=== PATIENT | male | born 1990 | race Caucasian/White ===

== ENCOUNTER 2024-06-18 11:22 | Emergency (ER) | payer OTHER, SELFPAY ==
[2024-06-18 11:33] VITALS: BP 142/85; PULSE 83; RESP 18; TEMP 36.6; O2SAT 99
--- NOTE | 2024-06-18 12:26 | ED_ITS ---
HPI - URI/Sore Throat General Chief Complaint: Upper Respiratory Infection Stated Complaint: Chest Congestion/Ear Pain Time Seen by Provider: 06/18/24 12:20 Source: patient, RN notes reviewed and old records reviewed Mode of arrival: ambulatory Limitations: no limitations History of Present Illness HPI Narrative: 34 year old male presents to [facility] care with complaints of left ear pain and drainage with some productive cough with greenish phlegm and head congestion for the past 4 days. Patient reports that he has been taking DayQuil, Mucinex, and and using an old albuterol inhaler he had without resolution. Patient reports no dyspnea with respiration even and nonlabored SAO2 99% on room air. Patient reports that it is night to go be [facility] who is [facility] and won't be able to go due to illness. MD elicited complaint: other (chest congestion and ear pain) Onset (ago): day(s) (4) Severity: moderate Description of mucous: green Able to tolerate fluids by mouth: Yes Treatments prior to arrival: other (Mucinex, DayQuil and old Albuterol inhaler) Related Data Home Medications Medication Instructions Recorded Confirmed bupropion HCl (smoking deter) 150 150 mg PO DIRECTED 06/18/24 06/18/24 mg tablet,12 hr sustained-release(smoking deterrent) dextroamphetamine-amphetamine 30 30 mg PO DIRECTED 06/18/24 06/18/24 mg tablet Allergies Allergy/AdvReac Type Severity Reaction Status Date / Time No Known Allergies Allergy Verified 06/18/24 11:31 Review of Systems Review of Systems: CONSTITUTIONAL: Reports malaise,no chills, sweats, or fever. EYES: Denies visual changes, redness, or discharge. ENT: Reports rhinorrhea, congestion, sinus pain, left otalgia and no sore throat. CARDIOVASCULAR: Denies chest pain, palpitations, or edema. RESPIRATORY: Reports productive cough.? Denies dyspnea. GASTROINTESTINAL: Denies abdominal pain, nausea, vomiting, diarrhea SKIN: Denies rash or itching. MUSCULOSKELETAL: Denies myalgia. NEUROLOGIC: Denies headache. All systems reviewed & are unremarkable except as noted in HPI and below PMFSH Past Medical History Medical History (Updated 06/23/24 @ 08:52 by Radha Mahan NP) ADHD (attention deficit hyperactivity disorder) Social History Social History (Updated 06/23/24 @ 08:49 by Radha Mahan NP) Smoking status: Former smoker Alcohol intake: current Alcohol use details: rare social Substance use type: does not use Living arrangements: with family Gender identity (if verbalized by the patient): Male Comments At time of signature, agree with nursing past medical, surgical, social and family history. There is no relevant family history pertinent to the presenting complaint Exam Narrative: GENERAL: Well-appearing, well-nourished, and in no acute distress. HEAD: Normocephalic EYES: PERRLA, conjunctivae clear ENT: Nares red swollen, turbinates edematous and erythematous, yellow green discharge sinus pressure. Mucous membranes moist.Left TM red with perforation of ear drum, Right TM pearly zhang with dull light reflex; no tragal tenderness. Oropharynx erythematous without lesions. Tonsils not enlarged and without exudate, no drooling, no hoarseness, no trismus, uvula midline.post nasal drainage present NECK: Supple. No lymphadenopathy CHEST: Clear to auscultation, breath sounds equal. No wheezing, rhonchi, rales, or stridor. No respiratory distress, speaks in full sentences. positive for productive cough SAO2 99% on room air HEART: Regular rate and rhythm. No murmur heard. SKIN: Warm, dry, no rash. NEURO: Alert and oriented x3. PSYCH: Normal mood and affect Course Course Emergency Course: Patient is aware of diagnosis, understands and agrees to treatment plan.? Anticipatory guidance given.? Patient agrees to follow-up as directed and is aware of reasons to seek care at the emergency department. Portions of this record may have been created with voice recognition software Level of Care: Express Care Visit Vital Signs Vital signs: Vital Signs Temperature 36.6 C 06/18/24 11:33 Pulse Rate 83 06/18/24 11:33 Respiratory Rate 18 06/18/24 11:33 Blood Pressure 142/85 H 06/18/24 11:33 Pulse Oximetry 99 06/18/24 11:33 Oxygen Delivery Room Air 06/18/24 11:33 Temperature 36.6 C 06/18/24 11:33 Pulse Rate 83 06/18/24 11:33 Respiratory Rate 18 06/18/24 11:33 Blood Pressure 142/85 H 06/18/24 11:33 Pulse Oximetry 99 06/18/24 11:33 Oxygen Delivery Room Air 06/18/24 11:33 Reviewed MDM - URI/Sore Throat MDM Narrative Medical decision making narrative: Differential diagnosis considered: Drew virus, strep pharyngitis, allergic rhinitis, upper respiratory tract infection, sinusitis, rhinosinusitis, nasopharyngitis. viral pharyngitis, otitis media, otitis externa, pneumonia, bronchitis, viral cough syndrome, viral syndrome, and influenza.? Exam findings show no acute concerns or changes; patient is non-toxic appearing and is in no distress.? Patient is appropriate for outpatient treatment and follow-up. Differential Diagnosis Differential diagnosis: Likely upper respiratory infection, otitis media, sinusitis, viral infection, bronchitis and other (cough) Medical Records Attestation: I reviewed the patient's medical records. Lab Data Attestation: I reviewed the patient's lab results. Critical Care Time Critical Care Time Critical Care Time: No Discharge Plan Discharge Clinical Impression: Congestion of nasal sinus Otitis media Qualifiers: Otitis media type: suppurative Chronicity: acute Laterality: left Recurrence: non-recurrent Spontaneous tympanic membrane rupture: with spontaneous rupture Qualified Code(s): H66.012 - Acute suppurative otitis media with spontaneous rupture of ear drum, left ear Patient Disposition: Home, Self-Care Condition: Stable Instructions: Antibiotic Form, Ear Infection (GEN) Additional Instructions: Increase fluids especially juices and water [id number] cough and cold medicine of your choice for your symptoms Zyrtec Claritin or Kristin daily include Coricidin brand decongestant Tylenol or ibuprofen for fever pain heat to the face 20-30 minutes 4-6 times a day for pain Salt water gargles, throat lozenges or throat sprays as desired Antibiotic as directed--finished the medication Ear drops as prescribed If your symptoms persist, change or worsen significantly before you can contact your personal physician then please, without delay, go to the emergency department for further evaluation. Follow-up with PCP in 7-10 days or sooner if needed Follow up with PCP soon in regards to your blood pressure which is elevated above threshold for referral. Blood pressure above 120/80 may indicate pre- hypertension. 142/85 Prescriptions: New amoxicillin-pot clavulanate 875-125 mg tablet 1 tablet PO Q12H Qty: 20 0RF Rx Instructions: Take with food encouraged to take probiotic while on this medication ofloxacin 0.3 % drops 5 drp LEFT EAR Q12H Qty: 10 0RF No Action dextroamphetamine-amphetamine 30 mg tablet 30 mg PO DIRECTED bupropion HCl (smoking deter) 150 mg tablet extended release 12 hr 150 mg PO DIRECTED Follow-up/Referrals: Agustin,Garo Smith MD [Primary Care Provider] - Time of Disposition: 12:38 Quality [place] Coma Scale Eyes: Open Verbal: Oriented and Alert Motor: Follows Commands Tamra Coma Total Score: 15
== END 2024-06-18 12:45 | disposition home or self-care (01) ==
PROVIDERS: Emergency Provider Registered Nurse; PCP Internal Medicine
DX: H66.002 Acute suppurative otitis media without spontaneous rupture of ear drum, left ear (principal); J34.89 Other specified disorders of nose and nasal sinuses; F90.9 Attention-deficit hyperactivity disorder, unspecified type
CPT/HCPCS: 99203; G0463

== ENCOUNTER 2025-01-15 12:19 | Outpatient (CLI) | payer OTHER, SELFPAY ==
--- NOTE | ~2025-01-15 | XR_ITS ---
XR cervical spine min 6V Ordering provider: Mikhail Mccullough, [place] History: . Cervicalgia . Comparison: None. FINDINGS: VERTEBRAL BODIES: Minimal anterolisthesis at the level of C6-C7. Otherwise, Normal height and alignme nt. No visible fracture or subluxation. The dens is intact. DISK SPACES: Well maintained. Narrowing of the intervertebral foramina in the lower cervical area bilaterally. PARASPINOUS SOFT TISSUES: No prevertebral soft tissue swelling. IMPRESSION: No acute osseous abnormality cervical spine. Minimal anterolisthesis at the level of C6-C7. Minimal narrowing of the foramina in the lower cervica l area bilaterally. Reviewed, dictated and finalized at location A. IMPRESSION: No acute osseous abnormality cervical spine. Minimal anterolisthesis at the level of C6-C7. Minimal narrowing of the foramin a in the lower cervical area bilaterally.
== END 2025-01-15 12:20 | disposition home or self-care (01) ==
LOC: MICIMG 12:20
PROVIDERS: PCP Chiropractor Rehabilitation; Visit Provider Chiropractor Rehabilitation
DX: M54.2 Cervicalgia (principal)
CPT/HCPCS: 72052

== ENCOUNTER 2025-03-08 15:29 | Outpatient (CLI) | payer OTHER, SELFPAY ==
--- NOTE | ~2025-03-08 | CT_ITS ---
EXAM: CT cervical spine wo con - 03/08/2025 15:30 CDT History: 34 years old Male with CERVICALGIA/ PAIN IN T SPINE COMPARISON: None available. PROCEDURE: CT of the cervical spine without contrast. Axial, sagittal and coronal reformatted plane s were evaluated. Automatic exposure control was used for this study. FINDINGS: No acute fracture or subluxation. Straightening of cervical lordosis, likely positional or may be rel ated to muscle spasm. .Prevertebral soft tissues are within normal limits. Visualized lung apices are clear. IMPRESSION: No evidence for cervical spine fracture or traumatic subluxation. Reviewed, dictated and finalized at location A.
--- NOTE | ~2025-03-08 | CT_ITS ---
EXAMINATION: CT thoracic spine wo con DATE: 03/08/2025 15:47 INDICATION: Thoracic spine pain TECHNIQUE: Computed tomography (CT) of the thoracic spine was performed without intravenous contrast. The dose-length product was 418.76 mGy-cm. COMPARISON: None FINDINGS: Alignment is normal. Relatively recent-appearing T6 burst fracture with 50% anterior and 10% posterio r vertebral body height loss and 2 mm retropulsion along the posterior wall which results in minimal central canal stenosis. Associated cortical buckling moderately narrows the bilateral neural foramina at T6-T7. There is additional recent-appearing T12 compression fracture with 20% anterior vertebral body height loss. Remaining vertebral body heights are normal. Mild disc height loss at T3-T4 through T5-T6 with small amount of vacuum phenomena at T5-T6. There is mild multilevel thoracic facet osteoa rthritis. Visualized portion of the lungs are clear. Paravertebral soft tissues are unremarkable. IMPRESSION: 1. Recent-appearing T6 burst fracture and T12 compression fracture. Reviewed, dictated and finalized at location A.
== END 2025-03-08 15:30 | disposition home or self-care (01) ==
LOC: GOSHIMG 15:29
DX: M54.2 Cervicalgia (principal); S22.051A Stable burst fracture of T5-T6 vertebra, initial encounter for closed fracture; S22.081A Stable burst fracture of T11-T12 vertebra, initial encounter for closed fracture; X58.XXXA Exposure to other specified factors, initial encounter
CPT/HCPCS: 72125; 72128